=== PATIENT | male | born 2005 | race Hispanic/Latino ===

== ENCOUNTER 2023-08-23 05:28 | Day surgery (SDC) | payer BC ==
[2023-08-22 12:06] VITALS: BMI 23.6
[2023-08-23] MEDS ORDERED: Oxymetazoline HCl 0.05% (30 ML BOT) ONE ×2 (06:15→06:38)
[2023-08-23] MEDS ORDERED: Bacitracin Zinc Ointment 30 gm TUBE ONE (06:38)
[2023-08-23] MEDS ORDERED: EPINEPHrine 1 MG/ML AMP ONE (06:38)
[2023-08-23] MEDS ORDERED: Lidocaine 1% (PF) 30 ML VIAL ONE (06:38)
[2023-08-23] MEDS ORDERED: Dexmedetomidine 200 MCG/2 ML VIAL ONE (06:39)
[2023-08-23] MEDS ORDERED: fentaNYL PF 100 MCG/2 ML SYRINGE ONE (06:39)
[2023-08-23] MEDS ORDERED: Midazolam HCl 2 mg/2 ml Vial ONE (07:03)
[2023-08-23] MEDS ORDERED: PROPOFOL 200 MG/20 ML VIAL ONE (07:15)
[2023-08-23] MEDS ORDERED: Ondansetron PF 4 MG/2 ML Vial ONE (07:15)
[2023-08-23] MEDS ORDERED: Lidocaine 1% PF 5 ML VIAL ONE (07:15)
[2023-08-23] MEDS ORDERED: Dexamethasone 20 MG/5 ML VIAL ONE (07:15)
[2023-08-23] MEDS ORDERED: Meperidine HCl/PF 25 MG/ML VIAL ONE (08:14)
[2023-08-23] MEDS ORDERED: Ketorolac Tromethamine 30 MG/ML VIAL ONE (08:26)
[2023-08-23] MEDS ORDERED: fentaNYL 50 mcg/mL 1 mL Vial ONE (08:34)
[2023-08-23] MEDS ORDERED: Hydrocodone-Acetamin 15 ML UDCUP ONE (09:45)
== END 2023-08-23 10:39 | disposition home or self-care (01) ==
LOC: SDC 05:28
PROVIDERS: ATTEND Student in an Organized Health Care Education/Training Program
PROC: 0NSB0ZZ Reposition Nasal Bone, Open Approach (ICD-10-PCS; principal; 2023-08-23)
DX: S02.2XXA Fracture of nasal bones, initial encounter for closed fracture (principal); J34.2 Deviated nasal septum; J34.3 Hypertrophy of nasal turbinates; W50.0XXA Accidental hit or strike by another person, initial encounter; Y93.67 Activity, basketball
CPT/HCPCS: J0171; J1100; J1885; J2001; J2175; J2250; J2405; J2704; J3010